=== PATIENT | female | born 1950 | race Caucasian/White ===

== ENCOUNTER 2017-11-21 05:47 | Inpatient (IN) | payer OTHER, BC ==
[2017-10-31 13:20] VITALS: BMI 34.0
--- NOTE | 2017-10-31 13:47 | PAT Medication Instructions ---
Service Date Oct 31, 2017. Current Home Medication List Zndoyvvmoga-Taiavctqlfr-Nfz C- (Glucosamine Chondroitin), 2 TAB PO QAM Loratadine (Claritin), 10 MG PO QAM Naproxen (Aleve), 440 MG PO QAM Medication Instructions For Your Scheduled Surgery - Hold the following medications 2 weeks prior to surgery: Drbaapzfyrv-Emuyatmiamw-Lkh C- (Glucosamine Chondroitin), 2 TAB PO QAM - Check with surgeon for instructions: Naproxen (Aleve), 440 MG PO QAM - Hold the following medications the morning of surgery: Loratadine (Claritin), 10 MG PO QAM If you have any questions please call us at [phone] or [phone] or [phone]
--- NOTE | 2017-10-31 14:35 | DIAGNOSTIC IMAGING REPORT ---
CHEST 2 VIEWS ROUTINE HISTORY: Preop. COMPARISON: None. FINDINGS: The lungs are clear. No pleural effusions. No pneumothorax. The heart is normal in size. Cholecystectomy. Mild S-shaped scoliosis of the thoracolumbar spine. IMPRESSION: No acute process. Electronically signed by: Serge Francis M.D. 10/31/2017 2:34 PM Dictated Date/Time: 10/31/2017 2:34 PM
[2017-10-31 16:18] LABS: BASO % 0.5 %; BASO ABS # 0.03 K/uL (0-0.2); EOS % 1.6 %; HEMATOCRIT 46.4 % (37-47); HEMOGLOBIN 16.3 g/dL (12.0-16.0); IG# 0.01 K/uL (0.00-0.02); LYMPH % 26.8 %; LYMPH ABS # 1.67 K/uL (1.2-3.4); MEAN CELL VOLUME 89.4 fL (80-100); MEAN CORPUSCULAR HEMOGLOBIN 31.4 pg (25-34); MEAN CORPUSCULAR HGB CONC 35.1 g/dl (32-36); MEAN PLATELET VOLUME 10.5 fL (7.4-10.4); MONO % 5.8 %; MONO ABS # 0.36 K/uL (0.11-0.59); NEUT % 65.1 %; NEUT ABS # 4.07 K/uL (1.4-6.5); PLATELET COUNT 199 K/uL (130-400); RED CELL DISTRIBUTION WIDTH CV 13.5 % (11.5-14.5); RED CELL DISTRIBUTION WIDTH SD 44.4 fL (36.4-46.3); WHITE BLOOD COUNT 6.24 K/uL (4.8-10.8)
[2017-10-31 16:27] LABS: PTT PATIENT 28.9 SECONDS (21.0-31.0)
[2017-10-31 16:41] LABS: CALCIUM 8.8 mg/dl (8.5-10.1); CREATININE 0.91 mg/dl (0.60-1.20); POTASSIUM 3.7 mmol/L (3.5-5.1)
[2017-11-01 07:28] LABS: HEMOGLOBIN A1C 5.7 % (4.5-5.6)
[~2017-11-21] VITALS: Ht 162.6 cm; Wt 91.4 kg
[2017-11-21] VITALS (7 sets, daily range): BP systolic 119–155; BP diastolic 75–83; PULSE 60–70; TEMP 36.5–36.9; O2SAT 94–98
[~2017-11-21 05:47] MED LIST: CLR10 PO; GLUCTAB7 PO; NAPR1TAB9 PO
[2017-11-21] MEDS ORDERED: ROPIVACAINE 5MG/ML 30 ML 150 MG, BUPIVACAINE 0.5% MPF INJ 30 ML, EpINEphrine HCL INJ 0.... INFIL SCH ×8 (06:00)
[2017-11-21] MEDS ORDERED: FAMOTIDINE 20 MG TAB PO SCH (06:00)
[2017-11-21] MEDS ORDERED: LACTATED RINGER'S 1000ML 500 ML IV SCH (06:00)
[2017-11-21] MEDS ORDERED: CeleBREX 200 MG CAP PO SCH (06:00)
[2017-11-21] MEDS ORDERED: DEXAMETHASONE 4 MG TAB PO SCH (06:00)
[2017-11-21] MEDS ORDERED: CEFAZOLIN 2000MG IV PUSH 15 ML IV SCH (06:00)
[2017-11-21] MEDS ORDERED: ACETAMINOPHEN 500 MG TAB PO SCH (06:00)
[2017-11-21] MEDS ORDERED: LACTATED RINGER'S 1000ML 1,000 ML IV SCH (06:00)
[2017-11-21] MEDS ORDERED: GABAPENTIN 300 MG CAP PO SCH (06:00)
[2017-11-21] MEDS ORDERED: METOCLOPRAMIDE HCL 10 MG TAB PO SCH (06:00)
[2017-11-21] MEDS ORDERED: BUPIVACAINE 0.5 % 5 MG/1 ML PF 10ML VIAL ONE (06:31)
[2017-11-21] MEDS ORDERED: BUPIVACAINE 0.25% 30 ML VIAL ONE (06:32)
[2017-11-21] MEDS ORDERED: MIDAZOLAM HCL 1 MG/ML 2ML VIAL ONE (06:41)
[2017-11-21] MEDS ORDERED: FENTANYL CITRATE INJ 50 MCG/1 ML 2 ML VIAL ONE (06:41)
[2017-11-21] MEDS ORDERED: PROPOFOL IV EMULSION 10 MG/ML 20 ML VIAL IV ONE (06:41)
[2017-11-21] MEDS ORDERED: ORTHO JOINT ANESTHETIC ONE (06:58)
[2017-11-21] MEDS ORDERED: POVIDONE-IODINE OP SOLN 30 ML BTL ONE ×2 (06:59→09:18)
[2017-11-21] MEDS ORDERED: BACITRACIN 50000 UNIT VIAL ONE (06:59)
--- NOTE | 2017-11-21 07:01 | History and Physical ---
History & Physical Date Nov 21, 2017. Chief Complaint Patient presents as a 67-year-old white female with severe end-stage DJD about her bilateral knees is felt times a conservative management presents for bilateral total knee arthroplasty she is failed times her previous injections cortical steroid injections anti-inflammatories with this consolidations relative rest. History of Present Illness The patient is a 67 year old female with complaints of ongoing bilateral knee pain failing all attempts to conservative measures including physical therapy of inflammatory relative rest presents for bilateral total knee arthroplasty Additional History Hepatic Disease: No Endocrine Disorder: No Kidney Disease: No Hypertension: No Heart Disease: No Bleeding Tendencies: No Infectious Diseases: No Allergies Coded Allergies: No Known Allergies (Unverified , 11/21/17) Home Medications Scheduled Lnjbckencia-Oqondrupkpw-Znb C- (Glucosamine Chondroitin), 2 TAB PO QAM Loratadine (Claritin), 10 MG PO QAM Naproxen (Aleve), 440 MG PO QAM Physical Examination Skin: warm/dry, no rash Eyes: normal inspection, EOMI, sclerae normal ENT: normal ENT inspection, pharynx normal Head: normocephalic, atraumatic Neck: supple, no adenopathy, trachea midline Respiratory/Chest: lungs clear, normal breath sounds, no respiratory distress Cardiovascular: regular rate, rhythm, no edema, no murmur Abdomen / GI: normal bowel sounds, non tender Back: normal inspection Extremities: normal inspection, normal range of motion Neurologic/Psych: no motor/sensory deficits, alert, normal reflexes, oriented x 3 Addiitonal Comments: Patient presents with severe end-stage DJD bilateral knees valgus alignment on left knee varus alignment on right knee for total knee arthroplasty phalanx of the conservative management and physical therapy anti-inflammatories relative rest activity modification Diagnosis Severe end-stage tricompartmental degenerative joint disease Plan of Treatment Bilateral total knee arthroplasty postop pain management DVT prophylaxis antibiotics as necessary
--- NOTE | 2017-11-21 07:01 | History & Physical Bridge Note ---
H&P Re-Evaluation Bridge Note: I have examined the patient, reviewed the History & Physical and in the interval since the performance of the History & Physical I have noted the following changes of clinical significance: No changes noted
[2017-11-21] MEDS: TRANEXAMIC ACID INJ 1,000 MG x 2 Bags IV SCH ×4 (07:49→12:21)
[2017-11-21] MEDS ORDERED: KETOROLAC TROMETHAMINE 30 MG/ML VIAL IV. PRN (09:00)
[2017-11-21] MEDS ORDERED: ONDANSETRON INJ 2 MG/ML 2 ML VIAL IV PRN ×2 (09:00→10:45)
[2017-11-21] MEDS ORDERED: HYDROmorphone INJ 0.5 MG/0.5 ML SYR IV PRN (09:00)
[2017-11-21] MEDS ORDERED: PHENYLEPHRINE 100MCG/ML 5ML SYR IV PRN (09:00)
[2017-11-21] MEDS ORDERED: ATROPINE SULFATE 0.1 MG/ML 5ML SYR IV PRN (09:00)
[2017-11-21] MEDS ORDERED: EpHEDrine SULFATE INJ 50 MG/ML AMP IV PRN (09:00)
--- NOTE | 2017-11-21 10:11 | [facility] Post Operative Brief Note ---
Immediate Operative Summary Operative Date Nov 21, 2017. Pre-Operative Diagnosis Severe End-Stage Tricompartmental Degenerative Joint Disease, Bilateral Knees Post-Operative Diagnosis Severe End-Stage Tricompartmental Degenerative Joint Disease, Bilateral Knees Procedure(s) Performed Bilateral Total Knee Arthroplasty bilateral turn total knee journey to utilizing patient matched the right size 5 femur 4 tibia 13 probably 32 oval patella left size 5 femur 4 tibia [address] Abreu Pillowcase Cleaner Surgeon(s) Alexis Luong PA-C Estimated Blood Loss 10cc rt 10 cc lt Findings Consistent with Post-Op Diagnosis Specimens A: Right Knee Bone and Tissue B: Left Knee Bone and Tissue Drains None Anesthesia Type MAC Spinal Regional Complication(s) none Disposition Disposition: Recovery Room / PACU
--- NOTE | 2017-11-21 10:14 | [facility] Operative Report ---
Operative Report Operative Date Nov 21, 2017. Pre-Operative Diagnosis Severe End-Stage Tricompartmental Degenerative Joint Disease, Bilateral Knees Post-Operative Diagnosis Severe End-Stage Tricompartmental Degenerative Joint Disease, Bilateral Knees Procedure(s) Performed Bilateral Total Knee Arthroplasty bilateral turn total knee journey to utilizing patient matched the right size 5 femur 4 tibia 13 probably 32 oval patella left size 5 femur 4 tibia [address] Abreu Sugar Grinder Surgeon(s) Alexis Luong PA-C Estimated Blood Loss 10cc rt 10 cc lt Findings Patient presents with severe end-stage DJD bilateral knees valgus alignment left knee neutral alignment right knee no response to conservative therapy since for bilateral total knee arthroplasty Specimens A: Right Knee Bone and Tissue B: Left Knee Bone and Tissue Drains None Anesthesia Type MAC Spinal Regional Complication(s) none Disposition Recovery Room / PACU Indications Patient presents with severe end-stage DJD bilateral knees with bilateral bone to bone changes subchondral sclerosis osteophytes marginal osteophytes bone to bone valgus alignment left knee patient presents for bilateral total knee arthroplasty after failing attempts at conservative management including physical therapy anti-inflammatories relative rest activity modification Visco supplementation and corticosteroid injections Description of Procedure After proper prepping and draping of the bilateral lower extremities, an anterior midline incision was made over the region of the extensor extensor mechanism of the left knee. After meticulous hemostasis was obtained and maintained in subcutaneous tissues a medial parapatellar incision was made The patella was subluxed lateralward the medial lateral gutter were cleaned from any hypertrophic synovitis and scar tissue of the distal femoral block was placed and the distal femoral osteotomy cut was made subsequently the chamfers anterior and posterior osteotomy cuts were made utilizing the 4-in-1 block the tibia was subsequently subluxed anteriorward medial and ateral meniscal remnants were excised in their entirety remnants of the anterior and posterior cruciate ligaments were excised in their entirety excellent exposure of the proximal tibia was obtained the tibial osteotomy guide was placed on the proximal tibial osteotomy cut was made once again the knee was irrigated with copious amounts of sterile saline solution the patella was subsequently everted lateralward thickened scar tissue around the patella was removed the patella was subsequently cut utilizing a freehand technique and was drilled prepared for final preparation and placement of patella socially flexion-extension gaps were checked and the equal and symmetric trials were placed to the appropriate femoral and tibial trials with poly-spacer being placed for equal flexion and extension gaps and full range of motion including extension to 0 and flexion to 140 the trial components after having been taken to recovery range of motion was subsequently removed meticulous hemostasis was obtained and maintained subsequently a knee block injection of joint cocktail including ropivacaine 0.5 % 150 mg. Bupivacaine 0.5% epinephrine 1-200,030 mL's toradol 30 mg dexamethasone 4 mg ketamine 10 mg clonidine 100 micrograms normal saline solution 30 mg was infiltrated into the soft tissues of the posterior knee medial lateral gutters and periosteal synovium special attention was paid to protect neurovascular structures at all times subsequently trial components having been removed the knee was irrigated with sterile saline solution. debris was removed the proximal tibia was subsequently prepared and was made ready for the placement of the tibial component tibial component was also cemented and tamped into position the femoral component was subsequently placed and cemented in the position the patellar component was subsequently cemented in position because hemostasis once again obtained and maintained wound having been thoroughly irrigated with debridement and debridement lavage was performed as well as a medial parapatellar incision closed with #1 Vicryl in interrupted fashion subcutaneous was closed with #2 Vicryl skin was closed with skin clips Next, an anterior midline incision was made over the region of the extensor extensor mechanism of the right knee. After meticulous hemostasis was obtained and maintained in subcutaneous tissues a medial parapatellar incision was made The patella was subluxed lateralward the medial lateral gutter were cleaned from any hypertrophic synovitis and scar tissue of the distal femoral block was placed and the distal femoral osteotomy cut was made subsequently the chamfers anterior and posterior osteotomy cuts were made utilizing the 4-in-1 block the tibia was subsequently subluxed anteriorward medial and ateral meniscal remnants were excised in their entirety remnants of the anterior and posterior cruciate ligaments were excised in their entirety excellent exposure of the proximal tibia was obtained the tibial osteotomy guide was placed on the proximal tibial osteotomy cut was made once again the knee was irrigated with copious amounts of sterile saline solution the patella was subsequently everted lateralward thickened scar tissue around the patella was removed the patella was subsequently cut utilizing a freehand technique and was drilled prepared for final preparation and placement of patella socially flexion-extension gaps were checked and the equal and symmetric trials were placed to the appropriate femoral and tibial trials with poly-spacer being placed for equal flexion and extension gaps and full range of motion including extension to 0 and flexion to 140 the trial components after having been taken to recovery range of motion was subsequently removed meticulous hemostasis was obtained and maintained subsequently a knee block injection of joint cocktail including ropivacaine 0.5 % 150 mg. Bupivacaine 0.5% epinephrine 1-200,030 mL's toradol 30 mg dexamethasone 4 mg ketamine 10 mg clonidine 100 micrograms normal saline solution 30 mg was infiltrated into the soft tissues of the posterior knee medial lateral gutters and periosteal synovium special attention was paid to protect neurovascular structures at all times subsequently trial components having been removed the knee was irrigated with sterile saline solution. debris was removed the proximal tibia was subsequently prepared and was made ready for the placement of the tibial component tibial component was also cemented and tamped into position the femoral component was subsequently placed and cemented in the position the patellar component was subsequently cemented in position because hemostasis once again obtained and maintained wound having been thoroughly irrigated with debridement and debridement lavage was performed as well as a medial parapatellar incision closed with #1 Vicryl in interrupted fashion subcutaneous was closed with #2 Vicryl skin was closed with skin clips.. PA-C was necessary for prepping and drapping as well as wound closure of deep fascia Sub cutaneous tissue and skin and was necessary for the case. A sterile compressive dressings were placed, patient was taken to recovery in stable condition of report dictated by Brady I attest to the content of the Intraoperative Record and any orders documented therein. Any exceptions are noted below. I attest to the content of the Intraoperative Record and any orders documented therein. Any exceptions are noted below.
[2017-11-21] MEDS ORDERED: MAGNESIUM HYDROXIDE SUSP 30 ML UDC PO PRN (10:45)
[2017-11-21] MEDS ORDERED: ALUMINUM/MAGNESIUM/SIMETH (MAALOX MAX) 30 ML UDC PO PRN (10:45)
[2017-11-21] MEDS ORDERED: BISACODYL 10 MG SUPP PR PRN (10:45)
--- NOTE | 2017-11-21 10:53 | DIAGNOSTIC IMAGING REPORT ---
R KNEE 2 VIEWS ROUTINE CLINICAL HISTORY: Right knee arthroplasty COMPARISON: None. DISCUSSION: There are postsurgical changes of a total right knee arthroplasty and patellar resurfacing. The femoral tibial components appear well seated. There are overlying skin aubrie and surgical drains. There is air in the soft tissues consistent with history of recent surgery. IMPRESSION: Postsurgical changes of a total right knee arthroplasty. Electronically signed by: Daniel Adams M.D. 11/21/2017 10:52 AM Dictated Date/Time: 11/21/2017 10:51 AM
--- NOTE | 2017-11-21 10:54 | DIAGNOSTIC IMAGING REPORT ---
L KNEE 2 VIEWS ROUTINE CLINICAL HISTORY: Left knee arthroplasty COMPARISON: None. DISCUSSION: There are postsurgical changes of a total left knee arthroplasty and patellar resurfacing. The femoral and tibial components appear well seated. Overlying skin aubrie and surgical drains are evident. There is air within the soft tissues consistent with the history of recent surgery. IMPRESSION: Postsurgical changes of a total left knee arthroplasty. Electronically signed by: Daniel Adams M.D. 11/21/2017 10:53 AM Dictated Date/Time: 11/21/2017 10:52 AM
--- NOTE | 2017-11-21 12:04 | Anesthesiology Progress Note ---
Anesthesia Post Op Note Date & Time Nov 21, 2017 at 12:04 Vital Signs Pain Intensity: 0 Vital Signs Past 12 Hours Date Time Temp Pulse Resp B/P (MAP) Pulse Ox O2 Delivery O2 Flow Rate FiO2 11/21/17 11:35 36.4 76 18 133/84 96 Nasal Cannula 2 11/21/17 11:25 67 18 140/80 97 Nasal Cannula 2 11/21/17 11:15 79 18 144/71 97 Nasal Cannula 2 11/21/17 11:05 65 18 123/82 97 Nasal Cannula 2 11/21/17 10:55 72 18 137/74 95 Nasal Cannula 2 11/21/17 10:45 80 18 119/69 96 Nasal Cannula 2 11/21/17 10:39 36.5 80 18 139/73 94 Nasal Cannula 2 11/21/17 06:46 36.5 70 20 155/81 96 Room Air Notes Mental Status: alert / awake / arousable, participated in evaluation Pt Amnestic to Procedure: Yes Nausea / Vomiting: adequately controlled Pain: adequately controlled Airway Patency, RR, SpO2: stable & adequate BP & HR: stable & adequate Hydration State: stable & adequate Anesthetic Complications: no major complications apparent
[2017-11-21] MEDS: FERROUS GLUCONATE 324 MG TAB PO SCH ×2 (14:51→18:05)
[2017-11-21] MEDS: D5W AND 1/2NSS + 20MEQ KCL 1,000 ML IV SCH ×2 (14:51→23:39)
[2017-11-21] MEDS: ACETAMINOPHEN 500 MG TAB PO SCH ×2 (14:52→21:31)
[2017-11-21] MEDS: CEFAZOLIN IV 2,000 MG in SYRINGE 0 ML IV SCH ×2 (15:46→23:39)
[2017-11-21] MEDS: CeleBREX 200 MG CAP PO SCH (21:00)
[2017-11-21] MEDS: DOCUSATE SODIUM 100 MG CAP PO SCH (21:30)
[2017-11-21] MEDS: SENNA 8.6 MG TAB PO SCH (21:30)
[2017-11-21] MEDS: OXYCODONE HCL IR 5 MG TAB (IMMEDIATE RELEASE) PO PRN (21:31)
[2017-11-22] VITALS (8 sets, daily range): BP systolic 121–180; BP diastolic 72–95; PULSE 67–87; TEMP 36.6–37.2; O2SAT 93–98; Ht 162.6 cm; Wt 91.4 kg
[2017-11-22] MEDS: ACETAMINOPHEN 500 MG TAB PO SCH ×3 (05:28→21:50)
[2017-11-22 06:30] LABS: HEMATOCRIT 36.9 % (37-47); HEMOGLOBIN 12.8 g/dL (12.0-16.0); MEAN CELL VOLUME 89.6 fL (80-100); MEAN CORPUSCULAR HEMOGLOBIN 31.1 pg (25-34); MEAN CORPUSCULAR HGB CONC 34.7 g/dl (32-36); MEAN PLATELET VOLUME 10.4 fL (7.4-10.4); PLATELET COUNT 183 K/uL (130-400); RED CELL DISTRIBUTION WIDTH CV 13.4 % (11.5-14.5); RED CELL DISTRIBUTION WIDTH SD 43.9 fL (36.4-46.3); WHITE BLOOD COUNT 13.89 K/uL (4.8-10.8)
[2017-11-22 07:04] LABS: CALCIUM 7.2 mg/dl (8.5-10.1); CREATININE 0.98 mg/dl (0.60-1.20); POTASSIUM 5.9 mmol/L (3.5-5.1)
[2017-11-22] MEDS: OXYCODONE HCL IR 5 MG TAB (IMMEDIATE RELEASE) PO PRN ×3 (07:22→17:50)
--- NOTE | 2017-11-22 08:05 | Orthopedic Progress Note ---
Orthopedic Progress Note Date of Service Nov 22, 2017. Subjective Post OP Day: 1 Reports: feeling well Objective N/V intact, dressing C/D/I (Hemovacs in place), toes mobile Date Time Temp Pulse Resp B/P (MAP) Pulse Ox O2 Delivery O2 Flow Rate FiO2 11/22/17 07:19 36.6 67 16 152/72 (98) 95 Room Air 11/22/17 03:04 37.2 70 16 121/73 (89) 93 Room Air 11/22/17 00:00 CPAP 11/21/17 23:17 36.7 60 14 126/75 (92) 95 BiPAP 11/21/17 14:59 36.5 65 16 119/76 (90) 96 Nasal Cannula 2.0 11/21/17 14:00 61 18 131/81 (98) 95 Nasal Cannula 2.0 11/21/17 12:55 66 16 127/83 (98) 97 Nasal Cannula 2.0 11/21/17 12:25 63 16 121/79 (93) 98 Nasal Cannula 2.0 11/21/17 12:00 Nasal Cannula 2.0 11/21/17 12:00 36.9 67 16 144/75 (98) 94 Nasal Cannula 2.0 11/21/17 12:00 Nasal Cannula 2.0 11/21/17 11:35 36.4 76 18 133/84 96 Nasal Cannula 2 11/21/17 11:25 67 18 140/80 97 Nasal Cannula 2 11/21/17 11:15 79 18 144/71 97 Nasal Cannula 2 11/21/17 11:05 65 18 123/82 97 Nasal Cannula 2 11/21/17 10:55 72 18 137/74 95 Nasal Cannula 2 11/21/17 10:45 80 18 119/69 96 Nasal Cannula 2 11/21/17 10:39 36.5 80 18 139/73 94 Nasal Cannula 2 Laboratory Results 24 Hours: Test 11/22/17 05:49 Hematocrit 36.9 % Hemoglobin 12.8 g/dL Assessment & Plan Assessment: 67 yo female stable POD #1 s/p bilat TKA, elevated BSG Plan: 1. Consult medical service 2. DVT prophylaxis- Lovenox, SCDs 3. PT/OT 4. D/C planning- home w/ HH
[2017-11-22] MEDS: SODIUM CHLORIDE 0.9% 1000ML 1,000 ML IV SCH ×2 (08:10→17:49)
--- NOTE | 2017-11-22 08:52 | Anesthesiology Progress Note ---
Anesthesia Post Op Note Date & Time Nov 22, 2017 at 08:52 Vital Signs Pain Intensity: 4.0 Vital Signs Past 12 Hours Date Time Temp Pulse Resp B/P (MAP) Pulse Ox O2 Delivery O2 Flow Rate FiO2 11/22/17 07:19 36.6 67 16 152/72 (98) 95 Room Air 11/22/17 03:04 37.2 70 16 121/73 (89) 93 Room Air 11/22/17 00:00 CPAP 11/21/17 23:17 36.7 60 14 126/75 (92) 95 BiPAP Notes Mental Status: alert / awake / arousable, participated in evaluation Pt Amnestic to Procedure: Yes Nausea / Vomiting: adequately controlled Pain: adequately controlled Airway Patency, RR, SpO2: stable & adequate BP & HR: stable & adequate Hydration State: stable & adequate Neuraxial Anesthesia: was administered, sensory block resolved Anesthetic Complications: no major complications apparent
[2017-11-22] MEDS: CeleBREX 200 MG CAP PO SCH ×2 (08:55→20:13)
[2017-11-22] MEDS: LORATADINE 10 MG TAB PO SCH (08:55)
[2017-11-22] MEDS: FERROUS GLUCONATE 324 MG TAB PO SCH ×3 (08:55→17:50)
[2017-11-22] MEDS: DOCUSATE SODIUM 100 MG CAP PO SCH ×2 (08:56→20:12)
[2017-11-22] MEDS: ENOXAPARIN 40 MG/0.4 ML SYR SQ SCH (08:56)
[2017-11-22] MEDS: MULTIVITAMIN TAB PO SCH (08:56)
[2017-11-22] MEDS: TRAMADOL HCL 50 MG TAB PO PRN ×2 (10:02→20:12)
[2017-11-22 10:16] LABS: CREATININE 1.02 mg/dl (0.60-1.20)
[2017-11-22 10:17] LABS: CALCIUM 8.3 mg/dl (8.5-10.1)
[2017-11-22] MEDS: MoRPHine SULFATE 2 MG/ML CARP IV PRN ×2 (11:09→15:17)
[2017-11-22] MEDS ORDERED: HydrALAZINE HCL 20 MG/ML VIAL IV. PRN (12:45)
--- NOTE | 2017-11-22 13:28 | Medical Consult ---
Consultation Date of Consultation: Nov 22, 2017. Attending Physician: Tank Abreu D.O. Reason for Consultation: Medical management History of Present Illness This is a 67 y/o female with a history of osteoarthritis and allergies who presents s/p bilateral TKA with Dr. Abreu on 11/22 for medical management. The patient reports feeling well postop. She does complain of bilateral knee pain L >R following physical therapy. She denies any numbness/tingling. She is eating , urinating, and passing gas without issue postop but has not yet had a bowel movement. The patient denies fevers, chills, sweats, chest pain, palpitations, claudication, cough, wheezing, shortness of breath, nausea, vomiting, abdominal pain, dysuria, hematuria, urinary retention, paralysis, weakness, numbness and tingling. Family History Breast cancer Heart disease Social History Smoking Status: Never Smoker Smokeless Tobacco Use: No Alcohol Use: occasionally Drug Use: none Marital Status: Housing Status: lives with significant other Occupation Status: retired Allergies Coded Allergies: No Known Allergies (Unverified , 11/21/17) Current Inpatient Medications Current Inpatient Medications Medications (Trade) Dose Ordered Sig/Francisca Route Start Time Stop Time Status Last Admin Dose Admin Loratadine (Claritin Tab) 10 mg QAM PO 11/22/17 09:00 12/22/17 08:59 11/22/17 08:55 10 MG Morphine Sulfate (MoRPHine SULFATE INJ) 2 mg Q4HWA PRN IV 11/21/17 10:45 12/05/17 10:44 11/22/17 11:09 2 MG Celecoxib (CeleBREX CAP) 200 mg BID PO 11/21/17 21:00 12/21/17 20:59 11/22/17 08:55 200 MG Oxycodone HCl (Roxicodone Immediate Rel Tab) 1 TABLET FOR PAIN RATING... Q4H PRN PO 11/21/17 10:45 12/05/17 10:44 11/22/17 07:22 10 MG Acetaminophen (Tylenol Tab) 1,000 mg Q8H PO 11/21/17 14:00 12/21/17 13:59 11/22/17 05:28 1,000 MG Magnesium Hydroxide (Milk Of Magnesia Susp) 30 ml Q6H PRN PO 11/21/17 10:45 5/4/18 10:44 Bisacodyl (Dulcolax Supp) 10 mg DAILY PRN AR 11/21/17 10:45 12/21/17 10:44 Senna (Senokot Tab) 17.2 mg HS PO 11/21/17 21:00 12/21/17 20:59 11/21/17 21:30 17.2 MG Docusate Sodium (coLACE CAP) 100 mg BID PO 11/21/17 21:00 12/21/17 20:59 11/22/17 08:56 100 MG Al Hydrox/Mg Hydrox/Simethicone (Maalox Max Susp) 15 ml Q4H PRN PO 11/21/17 10:45 12/21/17 10:44 Multivitamins (Multivitamin Tab) 1 tab QAM PO 11/22/17 09:00 12/22/17 08:59 11/22/17 08:56 1 TAB Ondansetron HCl (Zofran Inj) 4 mg Q6H PRN IV 11/21/17 10:45 12/21/17 10:44 Ferrous Gluconate (Ferrous Gluconate Tab) 324 mg TIDM PO 11/21/17 12:30 12/21/17 12:29 11/22/17 12:37 324 MG Tramadol HCl (Ultram Tab) 1 tablet for pain rating... Q4H PRN PO 11/21/17 10:45 12/21/17 10:44 11/22/17 10:02 100 MG Enoxaparin Sodium (Lovenox Inj) 40 mg Q24H SQ 11/22/17 09:00 12/22/17 08:59 11/22/17 08:56 40 MG Sodium Chloride 1,000 ml @ 100 mls/hr Q10H IV 11/22/17 08:00 12/22/17 07:59 11/22/17 08:10 100 MLS/HR Hydralazine HCl (HydrALAZINE INJ) 10 mg Q6H PRN IV. 11/22/17 12:45 12/22/17 12:44 UNV Insulin Aspart (novoLOG ASPART) SLIDING SCALE G... ACHS SC 11/22/17 17:15 12/22/17 17:14 UNV Review of Systems See HPI for pertinent positives and negatives. All other systems reviewed and negative. Physical Exam Date Time Temp Pulse Resp B/P (MAP) Pulse Ox O2 Delivery O2 Flow Rate FiO2 11/22/17 12:21 178/73 (108) 11/22/17 10:52 36.6 68 16 179/95 (123) 97 Room Air 11/22/17 07:19 36.6 67 16 152/72 (98) 95 Room Air 11/22/17 07:15 Room Air 11/22/17 03:04 37.2 70 16 121/73 (89) 93 Room Air 11/22/17 00:00 CPAP 11/21/17 23:17 36.7 60 14 126/75 (92) 95 BiPAP 11/21/17 14:59 36.5 65 16 119/76 (90) 96 Nasal Cannula 2.0 11/21/17 14:00 61 18 131/81 (98) 95 Nasal Cannula 2.0 General appearance: +Obese. Well-developed, well-nourished, no apparent distress Head: Normocephalic, atraumatic Eyes: Normal inspection, PERRL, EOMI ENT: Normal ENT inspection, hearing grossly normal, pharynx normal Neck: Supple, no JVD, trachea midline Respiratory/Chest: Lungs clear to auscultation, normal breath sounds, no respiratory distress Cardiovascular: Regular rate & rhythm, no gallop, no murmur Abdomen/GI: Normal bowel sounds, non-tender, soft Extremities/Musculoskeletal: +Bilateral lower extremities covered in letty bandage with bilateral hemovac. No calf tenderness, no pedal edema Neurological/Psych: Alert, normal mood/affect, oriented x 3 Skin: Normal color, warm/dry, no rash Laboratory Results Last 24 Hours Test 11/22/17 05:49 11/22/17 08:36 11/22/17 09:46 11/22/17 12:01 White Blood Count 13.89 K/uL Red Blood Count 4.12 M/uL Hemoglobin 12.8 g/dL Hematocrit 36.9 % Mean Corpuscular Volume 89.6 fL Mean Corpuscular Hemoglobin 31.1 pg Mean Corpuscular Hemoglobin Concent 34.7 g/dl RDW Standard Deviation 43.9 fL RDW Coefficient of Variation 13.4 % Platelet Count 183 K/uL Mean Platelet Volume 10.4 fL Sodium Level 133 mmol/L 136 mmol/L Potassium Level 5.9 mmol/L 4.0 mmol/L Chloride Level 105 mmol/L 105 mmol/L Carbon Dioxide Level 23 mmol/L 23 mmol/L Anion Gap 5.0 mmol/L 8.0 mmol/L Blood Urea Nitrogen 13 mg/dl 15 mg/dl Creatinine 0.98 mg/dl 1.02 mg/dl Est Creatinine Clear Calc Drug Dose 60.2 ml/min 57.8 ml/min Estimated GFR () 68.7 65.5 Estimated GFR (Non- 59.3 56.5 BUN/Creatinine Ratio 13.7 14.8 Random Glucose 494 mg/dl 134 mg/dl Calcium Level 7.2 mg/dl 8.3 mg/dl Beta-Hydroxybutyric Acid 0.68 mg/dL Hepatitis C Antibody Screen NEG Bedside Glucose 111 mg/dl 129 mg/dl Assessment & Plan 67 y/o female with a history of osteoarthritis and allergies who presents s/p bilateral TKA with Dr. Abreu on 11/22 for medical management. S/p bilateral TKA--POD #1 -Pain management, DVT prophylaxis, and PT/OT as per primary team -BP elevated, otherwise AVSS. No h/o HTN, not taking any antihypertensives at home -Cover with hydralazine 10 mg IV q6h prn SBP >160 Hyperglycemia, prediabetes--stable -Random glucose 494 on PRP this morning, but this was lab error. No h/o DM. Repeat finger stick only 111. -HgbA1c 5.7 on 10/31 -Insulin sliding scale -Check BSGs q ac and qhs Pseudohyperkalemia -Potassium had been 5.9 on morning labs, likely error due to hemolysis. Repeat potassium 4.0 w/o intervention Allergies -Continue Claritin Pt. is stable from a medical standpoint, we will sign off. Clear for discharge as per primary team.
[2017-11-22] MEDS ORDERED: PANTOprazole SOD 40 MG TAB PO STA (17:44)
[2017-11-22] MEDS: INSULIN ASPART 100 UNITS/ML 3 ML PEN SC SCH ×2 (17:49→20:14)
--- NOTE | 2017-11-22 18:14 | Discharge Instructions ---
Discharge Instructions Date of Service Nov 22, 2017. Admission Reason for Admission: Bilateral Knee Osteoarthritis Discharge Discharge Diagnosis / Problem: bilateral total knee replacements Discharge Goals Goal(s): Decrease discomfort, Improve function, Increase independence Activity Recommendations Activity Limitations: as noted below Weightbearing Status: Left weightbearing (as tolerated), Right weightbearing ( as tolerated) . Instructions / Follow-Up Instructions / Follow-Up ACTIVITY RECOMMENDATIONS: SELF CARE INSTRUCTIONS AFTER TOTAL KNEE REPLACEMENT A. You may need to continue a physical therapy program after discharge from the hospital. There are several options available to you. Your doctor will assist you in selecting the best one for you. 1. An out-patient facility 2 to 3 times a week for therapy or home therapy. 2. Continue working on all exercises taught to you in the hospital. Your goals should be to increase bending of your knee to 90 degrees and beyond and to fully straighten your knee. B. You may progress at your own pace from walking with a walker or crutches to a cane; then to no assistive devices. C. Make walking a part of your daily routine. Be up as much as comfortable with rest periods throughout the day. Rest with leg elevation is very important. Use the ice wrap frequently for the first 3-4 weeks. D. There are no restrictions on activities. You may ride in a car, shop, participate in supervisor publications and all social activities. E. Wear the long elastic stockings (RICHAR hose) 20 hours a day for 2 weeks after surgery. They can be removed several times a day for laundering and for a bath. F. You may shower, no tub baths until cleared by your doctor. SPECIAL CARE INSTRUCTIONS: VERY IMPORTANT TO READ AND REVIEW A. There are a few signs you need to watch for after you are home. Call [facility] if you notice any of the followin. Increased severe knee pain. Some pain is expected especially when you exercise. 2. Increased swelling in your leg or knee; pain or swelling of the calf muscle in either lower leg. 3. Any fluid drainage from the incision. 4. Shortness of breath or chest pain. B. Please call [facility] at if you have any concerns or questions about your operation or recovery. The doctor or his nurse will return your call promptly. C. You must take antibiotics before dental work, bladder, bowel or other surgery. Your doctor will provide you with a permanent care to carry describing this precaution. IMPORTANT: * REMEMBER TO TAKE ASPIRIN, 81 MG, TWICE DAILY FOR 4 WEEKS UNLESS OTHERWISE DIRECTED. THIS IS YOUR BLOOD THINNER. * HIGH RISK PATIENTS MAY BE PRESCRIBED A STRONGER BLOOD THINNER. THIS WILL BE PROVIDED AT DISCHARGE. * CALL IF INCREASED PAIN, REDNESS, DRAINAGE OR FEVER GREATER THAT 101. * WEAR RICHAR HOSE 20 HOURS PER DAY FOR 2 WEEKS. * YOU MAY HAVE A LARGE BAND-AID LIKE DRESSING (SILVERON). THIS WILL REMAIN ON YOUR INCISION FOR 7 DAYS, THEN CAN BE REMOVED. IF INCISION IS LEAKING THROUGH DRESSING, CALL THE OFFICE . DERMABOND Prineo- This is a mesh tape dressing that is covered with glue. It should remain in place until the incision is properly healed, usually 10-14 days. This dressing is designed to naturally slough off. You may trim the excess mesh tape as it peels off. Incision may be briefly wet in a shower. Dry immediately by blotting with a clean, dry towel. Do not bath or swim until instructed by your doctor. Do not scratch, rub, or pick at the dressing. Do not apply any topical ointments or lotions until dressing is completely removed and/or instructed by your doctor. There may be a small piece of suture material at one end of your incision. Do not pull or trim this. If it is bothersome or catching on clothing, you may cover it with a band-aid. FOLLOW UP VISIT: If appointment is not already scheduled: Please call [facility] to make a follow-up appointment for 2 weeks after your surgery at . Current Hospital Diet Patient's current hospital diet: Regular Diet Discharge Diet Recommended Diet: Regular Diet Procedures Procedures Performed: Bilateral Total Knee Arthroplasty bilateral turn total knee journey to [facility] patient matched the right size 5 femur 4 tibia 13 probably 32 oval patella left size 5 femur 4 tibia 1332 oval patella Pending Studies Studies pending at discharge: no Laboratory Results Hemoglobin A1c Test 10/31/17 13:56 Range/Units Estimated Average Glucose 117 mg/dl Hemoglobin A1c 5.7 H 4.5-5.6 % Medical Emergencies . Who to Call and When: Medical Emergencies: If at any time you feel your situation is an emergency, please call 911 immediately. . Non-Emergent Contact Non-Emergency issues call your: Primary Care Provider, Surgeon . "Provider Documentation" section prepared by Jesus Kessler. . [place] Drug Monitoring Program Search Results: patient reviewed within database, no issues identified
[2017-11-22] MEDS: SENNA 8.6 MG TAB PO SCH (20:13)
[2017-11-23] MEDS: OXYCODONE HCL IR 5 MG TAB (IMMEDIATE RELEASE) PO PRN ×5 (02:45→21:05)
[2017-11-23] MEDS: SODIUM CHLORIDE 0.9% 1000ML 1,000 ML IV SCH (02:45)
[2017-11-23] MEDS: ACETAMINOPHEN 500 MG TAB PO SCH ×3 (05:45→21:05)
[2017-11-23 07:09] LABS: HEMATOCRIT 35.4 % (37-47); HEMOGLOBIN 12.1 g/dL (12.0-16.0); MEAN CELL VOLUME 90.3 fL (80-100); MEAN CORPUSCULAR HEMOGLOBIN 30.9 pg (25-34); MEAN CORPUSCULAR HGB CONC 34.2 g/dl (32-36); PLATELET COUNT 173 K/uL (130-400); RED CELL DISTRIBUTION WIDTH SD 45.7 fL (36.4-46.3); WHITE BLOOD COUNT 10.32 K/uL (4.8-10.8)
[2017-11-23 07:30] VITALS: BP 130/80; PULSE 70; TEMP 36.5; O2SAT 96
[2017-11-23 07:42] LABS: CALCIUM 8.1 mg/dl (8.5-10.1); CREATININE 0.73 mg/dl (0.60-1.20); POTASSIUM 3.9 mmol/L (3.5-5.1)
--- NOTE | 2017-11-23 08:00 | Orthopedic Progress Note ---
Orthopedic Progress Note Date of Service Nov 23, 2017. Subjective Post OP Day: 2 Reports: feeling well, Denies: chest pain, SOB, nausea / vomiting, light headedness, calf pain Objective calves soft nontender, N/V intact, capillary refill less than 2 sec., dressing C /D/I (SILVELRON), A&O x3, toes mobile Date Time Temp Pulse Resp B/P (MAP) Pulse Ox O2 Delivery O2 Flow Rate FiO2 11/23/17 07:30 36.5 70 14 130/80 (97) 96 Room Air 11/22/17 23:15 158/79 (105) 11/22/17 23:13 37.1 87 16 180/79 (112) 93 Room Air 11/22/17 20:15 Room Air 11/22/17 15:30 Room Air 11/22/17 15:29 36.9 75 18 151/82 (105) 98 Room Air 11/22/17 14:14 169/93 (118) 11/22/17 12:21 178/73 (108) 11/22/17 10:52 36.6 68 16 179/95 (123) 97 Room Air Laboratory Results 24 Hours: Test 11/23/17 06:41 Hematocrit 35.4 % Hemoglobin 12.1 g/dL Assessment & Plan Assessment: 67 yo female stable POD #2 s/p bilat TKA Plan: 1. Consult medical service - HYPERGLYCEMIA AND HYPERKALEMIA LAB ERRORS. APPRECIATE MEDICAL INPUT 2. DVT prophylaxis- Lovenox, SCDs 3. PT/OT 4. D/C planning- home w/ HH LIKELY SUNDAY
[2017-11-23 08:15] VITALS: O2SAT 96
[2017-11-23] MEDS: CeleBREX 200 MG CAP PO SCH ×2 (08:50→21:06)
[2017-11-23] MEDS: FERROUS GLUCONATE 324 MG TAB PO SCH ×3 (08:50→17:42)
[2017-11-23] MEDS: LORATADINE 10 MG TAB PO SCH (08:50)
[2017-11-23] MEDS: MULTIVITAMIN TAB PO SCH (08:50)
[2017-11-23] MEDS: DOCUSATE SODIUM 100 MG CAP PO SCH ×2 (08:51→21:06)
[2017-11-23] MEDS: ENOXAPARIN 40 MG/0.4 ML SYR SQ SCH (08:51)
[2017-11-23] MEDS: PANTOprazole SOD 40 MG TAB PO SCH (08:51)
[2017-11-23] MEDS: INSULIN ASPART 100 UNITS/ML 3 ML PEN SC SCH ×2 (08:52→12:34)
[2017-11-23] MEDS: TRAMADOL HCL 50 MG TAB PO PRN (10:17)
[2017-11-23] MEDS ORDERED: NURSING VERBAL MED ORDER ONE ×2 (13:15→15:45)
[2017-11-23 15:24] VITALS: BP 147/81; PULSE 86; TEMP 36.9; O2SAT 96
[2017-11-23] MEDS: SENNA 8.6 MG TAB PO SCH (21:05)
[2017-11-23 23:07] VITALS: BP 121/72; PULSE 79; TEMP 36.9; O2SAT 95
[2017-11-24] MEDS: ACETAMINOPHEN 500 MG TAB PO SCH (06:20)
[2017-11-24 06:56] LABS: HEMATOCRIT 34.8 % (37-47); HEMOGLOBIN 11.7 g/dL (12.0-16.0); MEAN CELL VOLUME 91.6 fL (80-100); MEAN CORPUSCULAR HEMOGLOBIN 30.8 pg (25-34); MEAN CORPUSCULAR HGB CONC 33.6 g/dl (32-36); MEAN PLATELET VOLUME 10.4 fL (7.4-10.4); PLATELET COUNT 158 K/uL (130-400); RED CELL DISTRIBUTION WIDTH CV 13.9 % (11.5-14.5); RED CELL DISTRIBUTION WIDTH SD 46.1 fL (36.4-46.3); WHITE BLOOD COUNT 8.44 K/uL (4.8-10.8)
[2017-11-24 07:30] LABS: CREATININE 0.81 mg/dl (0.60-1.20)
--- NOTE | 2017-11-24 07:42 | Orthopedic Progress Note ---
Orthopedic Progress Note Date of Service Nov 24, 2017. Subjective Post OP Day: 3 Reports: feeling well, pain controlled w PO medications, Denies: complaints, chest pain, SOB, nausea / vomiting, light headedness, calf pain Objective calves soft nontender, N/V intact, capillary refill less than 2 sec., dressing C /D/I, A&O x3, toes mobile Date Time Temp Pulse Resp B/P (MAP) Pulse Ox O2 Delivery O2 Flow Rate FiO2 11/23/17 23:07 36.9 79 16 121/72 (88) 95 CPAP 11/23/17 21:19 Room Air 11/23/17 15:24 36.9 86 22 147/81 (103) 96 Room Air 11/23/17 08:15 96 Room Air Laboratory Results 24 Hours: Test 11/24/17 06:22 Hematocrit 34.8 % Hemoglobin 11.7 g/dL Assessment & Plan Assessment: 67 yo female stable POD #3 s/p bilat TKA Plan: 1. Consult medical service - HYPERGLYCEMIA AND HYPERKALEMIA LAB ERRORS. APPRECIATE MEDICAL INPUT 2. DVT prophylaxis- Lovenox, SCDs 3. PT/OT 4. D/C planning- home w/ HH
[2017-11-24] MEDS: OXYCODONE HCL IR 5 MG TAB (IMMEDIATE RELEASE) PO PRN ×2 (07:43→11:53)
[2017-11-24] MEDS ORDERED: ONDA-170 PO (07:44)
[2017-11-24] MEDS ORDERED: ACET-24 PO (07:44)
[2017-11-24] MEDS ORDERED: LVNIS40 SQ (07:44)
[2017-11-24] MEDS ORDERED: RXC5 PO (07:44)
[2017-11-24] MEDS ORDERED: CLB200 PO (07:44)
[2017-11-24 08:17] VITALS: BP 125/72; PULSE 73; TEMP 36.9; O2SAT 96
[2017-11-24 08:21] VITALS: BP 125/72; PULSE 73; TEMP 36.9; O2SAT 96
[2017-11-24] MEDS: FERROUS GLUCONATE 324 MG TAB PO SCH (08:46)
[2017-11-24] MEDS: MULTIVITAMIN TAB PO SCH (08:46)
[2017-11-24] MEDS: LORATADINE 10 MG TAB PO SCH (08:46)
[2017-11-24] MEDS: PANTOprazole SOD 40 MG TAB PO SCH (08:46)
[2017-11-24] MEDS: DOCUSATE SODIUM 100 MG CAP PO SCH (08:46)
[2017-11-24] MEDS: CeleBREX 200 MG CAP PO SCH (08:47)
[2017-11-24] MEDS: ENOXAPARIN 40 MG/0.4 ML SYR SQ SCH (08:48)
--- NOTE | 2017-11-26 17:20 | DISCHARGE SUMMARY ---
DISCHARGE DIAGNOSIS: Degenerative joint disease, bilateral knees. CONSULTS: Daija Spence PA-C/Jl Fu DO. COMPLICATIONS: None. PROCEDURES: Bilateral total knee arthroplasty performed by Dr. Abreu on 11/21/2017. BRIEF HISTORY: As dictated in the history and physical. HOSPITAL SUMMARY: Patient was admitted on the above noted-date and had the above-noted surgery performed which she tolerated well. On first postoperative day, she was feeling well. Neurovascularly intact. Dressings were clean, dry and intact. Toes are mobile. Vital signs were stable and she was afebrile. Hemoglobin was 12.8. It was noted by the nursing staff that her blood chemistries had come back and had noted her random glucose at 494. Patient did not have a history of diabetes for herself, but in one of her grandparents, but nevertheless medicine service was consulted to see the patient and to follow the patient during her stay. It was also noted that she had a potassium of 5.9. After discussing with medicine service, labs were redrawn and here, it was due to a lab error with the blood specimen that had been taken and potassium was 4 and her point of care glucose was 111 and 134 on the redraw. She was continually followed by medicine during her stay and she was started on physical therapy protocol and continued on DVT prophylaxis and pain management. By her second postoperative day, she was feeling well and had no complaints. Calves were soft, nontender. Neurovascularly intact. Dressings were clean, dry and intact. Toes were mobile. Vital signs were stable. She was afebrile. Hemoglobin was 12.1 and she was continued on her PT protocol. Rest of her stay was essentially uneventful and by 11/24/2017 she continued to remain afebrile and vital signs were stable. Pain was controlled. Dressings were intact. Toes were mobile. Neurovascularly was intact. Calves were soft and nontender. She was progressing well with physical therapy. Hemoglobin was 11.7. It was felt she could be discharged to home with home health services. For further review, please see chart. LAB AND X-RAY DATA: As per chart. DISCHARGE INSTRUCTIONS: Patient was discharged to home in satisfactory condition on 11/24/2017. DIET: Regular. ACTIVITY: Weightbearing as tolerated on the right and left lower extremities. Follow TK instruction sheets and special care instructions. Follow up with Dr. Abreu in 2 weeks. DISCHARGE MEDICATIONS: Acetaminophen 1000 mg p.o. q. 8 hours for 30 days, Celebrex 200 mg p.o. b.i.d., enoxaparin 40 mg subQ q. 12 hours for 14 days, Zofran 8 mg p.o. q. 8 hours p.r.n. nausea, oxycodone 5-10 mg p.o. q. 4 hours p.r.n., resume home meds as listed and stop taking naproxen.
== END 2017-11-24 12:15 | disposition home health service (06) | DRG 462 ==
LOC: C.ACU 05:47 → C.3E 07:00 → ENRESERV 11:21
PROVIDERS: ADMIT Orthopaedic Surgery; ATTEND Orthopaedic Surgery
PROC: 0SRC0J9 Replacement of Right Knee Joint with Synthetic Substitute, Cemented, Open Approach (ICD-10-PCS; principal; 2017-11-21 08:15)
PROC: 0SRD0J9 Replacement of Left Knee Joint with Synthetic Substitute, Cemented, Open Approach (ICD-10-PCS; principal; 2017-11-21 08:15)
DX: M17.0 Bilateral primary osteoarthritis of knee (principal); Z79.899 Other long term (current) drug therapy